=== PATIENT | female | born 1980 | race Hispanic/Latino ===

== ENCOUNTER → 2020-08-11 | Outpatient (CLI) | payer OTHER | END | disposition home or self-care (01) | LOC: RAH 15:50 | PROVIDERS: ATTEND Physician Assistant Medical | DX: Z12.31 Encounter for screening mammogram for malignant neoplasm of breast (principal) | CPT/HCPCS: 77067 ==

== ENCOUNTER → 2020-08-25 | Outpatient (CLI) | payer OTHER | END | disposition home or self-care (01) | LOC: RAH 09:04 | PROVIDERS: ATTEND Physician Assistant Medical | DX: R92.2 Inconclusive mammogram (principal) ==

== ENCOUNTER → 2020-09-15 | Outpatient (CLI) | payer OTHER ==
[2020-09-15 09:09] LABS: INR 1.02 (0.85-1.15); PROTHROMBIN TIME 11.1 SEC (9.6-11.6)
[2020-09-15 09:10] LABS: PARTIAL THROMBOPLASTIN TIME 26.5 SEC (26.3-35.5)
== END | disposition home or self-care (01) ==
LOC: RAH 08:05
PROVIDERS: ATTEND Specialist
DX: N63.15 Unspecified lump in the right breast, overlapping quadrants (principal); Z79.01 Long term (current) use of anticoagulants
CPT/HCPCS: 19083; 36415; 77065; 85610; 85730; A4215 ×3

== ENCOUNTER → 2023-04-19 | Outpatient (CLI) | payer OTHER | END | disposition home or self-care (01) | LOC: RAH 14:12 | PROVIDERS: ATTEND Obstetrics & Gynecology | DX: Z12.31 Encounter for screening mammogram for malignant neoplasm of breast (principal) | CPT/HCPCS: 77067 ==

== ENCOUNTER → 2024-05-08 | Outpatient (CLI) | payer OTHER ==
--- NOTE | 2024-05-09 08:46 | HMCIMG ---
Exam Type: MAMMO SCREENING BILATERAL Clinical Information: ANNUAL SCREENING Comparison: April 19, 2023 Technique: Bilateral mammogram with CAD was performed with CC and MLO projections. FINDINGS: Breast parenchyma is dense which may obscure underlying masses. Within the right breast posterior third, seen only to advantage on the MLO view, there is a focus of increased density with possible architectural distortion which was not present on prior examination. This warrants further evaluation with spot compression views and right breast ultrasound. There is no nipple retraction or skin thickening. Benign-appearing calcifications are seen. CAD shows no worrisome regions. IMPRESSION: Within the right breast posterior third, seen only to advantage on the MLO view, there is a focus of increased density with possible architectural distortion which was not present on prior examination. This warrants further evaluation with spot compression views and right breast ultrasound. BI-RADS: CATEGORY 0: INCOMPLETE. NEED ADDITIONAL IMAGING EVALUATION.
== END | disposition home or self-care (01) ==
LOC: RAH 10:50
PROVIDERS: ATTEND Obstetrics & Gynecology
DX: Z12.31 Encounter for screening mammogram for malignant neoplasm of breast (principal)
CPT/HCPCS: 77067

== ENCOUNTER → 2024-06-12 | Outpatient (CLI) | payer OTHER ==
--- NOTE | 2024-06-13 08:43 | HMCIMG ---
Exam: Right breast diagnostic mammogram and right breast ultrasound. HISTORY: ABN MAMMOGRAM COMPARISON: 04/18/2024 TECHNIQUE: Right breast digital diagnostic mammogram was performed. Spot compression views of the area in question were obtained. Right breast ultrasound images also were obtained. FINDINGS: Parenchymal density: The breasts are heterogeneously dense, which may obscure small masses. There are no focal mass lesions. There are no areas of architectural distortion. Focal spot compression views of the area in question on the screening mammogram show effacement of underlying tissues. There are no abnormal calcifications. There is no evidence of nipple retraction or skin thickening. Right breast ultrasound demonstrates a 9 mm cyst in the 12:00 position. This roughly corresponds with the area of mammographic density seen on the screening view. The ultrasound is otherwise negative. There are no focal masses. There is no architectural distortion or acoustical shadowing. There are some normal-appearing lymph nodes in the right axilla. IMPRESSION: 1. No mammographic or sonographic evidence of a malignant process in the right breast. 2. Area in question upper portion of the right breast on the MLO view shows no evidence of architectural distortion on focal spot views. 3. 9 mm cyst 12:00 position right breast which corresponds with the area in question on the mammogram, the ultrasound was otherwise negative, no solid nodules identified. The patient was entered into a reminder system with a target due date for their next mammogram. BI-RADS CATEGORY 2: BENIGN FINDINGS Recommend monthly self breast exam as well as annual clinical examination. A negative x-ray should not delay biopsy if a dominant or clinically suspicious mass is present, since 8-10% of cancers are not identified by mammography. Dense breasts particularly, may obscure an underlying neoplasm. Some of these may be detected clinically and therefore, clinical examination is an essential part of breast evaluation.
== END | disposition home or self-care (01) ==
LOC: RAH 13:27
PROVIDERS: ATTEND Obstetrics & Gynecology
DX: N60.01 Solitary cyst of right breast (principal); R92.331 Mammographic heterogeneous density, right breast
CPT/HCPCS: 76641; 77065